=== PATIENT | female | born 1975 | race Caucasian/White ===

== ENCOUNTER → 2016-07-17 | Outpatient (CLI) | payer OTHER | LOC: M LAB 16:07 | PROVIDERS: ATTEND Family Medicine | DX: Z13.0 Encounter for screening for diseases of the blood and blood-forming organs and certain disorders involving the immune mechanism (principal) ==

== ENCOUNTER → 2017-03-18 | Outpatient (CLI) | payer OTHER ==
--- NOTE | 2017-03-18 17:14 | REPMRS ---
Patient History The patient states she had a clinical breast exam in 02/2017. Family history of breast cancer in paternal aunt at age 50. Took hormonal contraceptives for 6 years. Digital Woman Screen Mammo: March 18, 2017 - Exam #: [id number] Bilateral CC and MLO view(s) were taken. Technologist: Jocelin Holder, Technologist FINDINGS: There are scattered fibroglandular densities. There is no evidence of dominant mass, architectural distortion, or clustered microcalcification typical of malignancy. ASSESSMENT: BI-RADS/ACR category 1 mammogram. Negative. Recommendation Routine screening mammogram of both breasts in 1 year (for women over age 40). This mammogram was interpreted with the aid of an FDA-approved computer-aided dectection system. Electronically Signed By: Jonathon Mcdonald MD 03/18/17 [id number]
== END ==
LOC: M WHC 15:44
PROVIDERS: ATTEND Obstetrics & Gynecology
DX: Z12.31 Encounter for screening mammogram for malignant neoplasm of breast (principal); Z80.3 Family history of malignant neoplasm of breast; Z92.0 Personal history of contraception

== ENCOUNTER → 2017-03-19 | Outpatient (REF) | payer OTHER | LOC: M LAB REF 18:57 | PROVIDERS: ATTEND Physician Assistant | DX: M54.5 Low back pain (principal) ==

== ENCOUNTER → 2017-08-04 | Outpatient (REF) | payer OTHER ==
[2017-08-04 12:41] LABS: HEMATOCRIT 40.1 % (36.0-47.0); HEMOGLOBIN 13.1 g/dl (12.0-15.5); MEAN CORPUSCULAR HEMOGLOBIN 32.1 pg (27.0-33.0); MEAN CORPUSCULAR HGB CONC 32.7 g/dl (32.0-36.5); MEAN CORPUSCULAR VOLUME 98.3 fl (80.0-96.0); PLATELET COUNT, AUTOMATED 272 10^3/uL (150-450); RED BLOOD COUNT 4.08 10^6/uL (4.00-5.40); RED CELL DISTRIBUTION WIDTH 12.5 % (11.5-14.5); WHITE BLOOD COUNT 5.5 10^3/uL (4.0-10.0)
[2017-08-04 13:17] LABS: TOTAL 25(OH) VITAMIN D 43.3 NG/ML (30.0-100.0)
[2017-08-04 13:23] LABS: ESTIMATED AVERAGE GLUCOSE 80 MG/DL (60-110); HEMOGLOBIN A1c 4.4 %
[2017-08-04 13:30] LABS: ALBUMIN 3.9 GM/DL (3.2-5.2); ALBUMIN/GLOBULIN RATIO 1.15 (1.00-1.93); ALKALINE PHOSPHATASE 60 U/L (45-117); ALT/SGPT 18 U/L (12-78); ANION GAP 5 MEQ/L (8-16); AST/SGOT 13 U/L (7-37); BILIRUBIN,TOTAL 0.3 MG/DL (0.2-1.0); BLOOD UREA NITROGEN 16 MG/DL (7-18); CALCIUM LEVEL 9.1 MG/DL (8.5-10.1); CARBON DIOXIDE LEVEL 28 MEQ/L (21-32); CHLORIDE LEVEL 109 MEQ/L (98-107); CHOLESTEROL LEVEL 201 MG/DL (<200); CHOLESTEROL RISK RATIO 2.512 (<5); CREATININE FOR GFR 0.68 MG/DL (0.55-1.30); GLOMERULAR FILTRATION RATE > 60.0 (>58); GLUCOSE, FASTING 97 MG/DL (70-100); HDL CHOLESTEROL 80 MG/DL (>40); LDL CHOLESTEROL 99.8 MG/DL (<100); NON-HDL-C 121 MG/DL; POTASSIUM SERUM 4.3 MEQ/L (3.5-5.1); SODIUM LEVEL 142 MEQ/L (136-145); TOTAL PROTEIN 7.3 GM/DL (6.4-8.2); TRIGLYCERIDES LEVEL 106 MG/DL (<150)
== END ==
LOC: M LABDRWAD 12:16
DX: D64.9 Anemia, unspecified (principal); E03.9 Hypothyroidism, unspecified; R53.83 Other fatigue

== ENCOUNTER → 2017-10-16 | Outpatient (CLI) | payer OTHER | LOC: M ADAMS 17:54 | DX: M79.641 Pain in right hand (principal) | CPT/HCPCS: 73130 ==

== ENCOUNTER 2018-02-13 08:29 | Emergency (ER) | payer OTHER ==
[2018-02-13] MEDS: IBUPROFEN 800 MG TAB PO (08:54)
== END 2018-02-13 09:52 | disposition home or self-care (01) ==
LOC: M ED 08:29
DX: S20.212A Contusion of left front wall of thorax, initial encounter (principal); W50.1XXA Accidental kick by another person, initial encounter; Y92.098 Other place in other non-institutional residence as the place of occurrence of the external cause; Y93.75 Activity, martial arts; Z88.8 Allergy status to other drugs, medicaments and biological substances
CPT/HCPCS: 71101

== ENCOUNTER → 2018-07-14 | Outpatient (CLI) | payer OTHER ==
[~2018-07-14] MED LIST: NORCOTAB PO
--- NOTE | 2018-07-14 17:24 | REP ---
Clinical: Left hand pain Technique: AP, lateral, bilateral oblique views left hand . Findings: The osseous structures and joint spaces are intact and normal. There is no evidence for acute fracture or dislocation. Surrounding soft tissues are unremarkable. No subcutaneous emphysema or radiodense foreign body. Impression: No acute fracture or dislocation. Electronically Signed by Joe Meyer MD 07/14/2018 05:15 P
== END ==
LOC: M ADAMS 16:23
PROVIDERS: ATTEND Family Medicine
DX: M79.642 Pain in left hand (principal)

== ENCOUNTER → 2018-08-31 | Outpatient (CLI) | payer OTHER ==
[~2018-08-31] MED LIST changes: +HYDR-3715 PO; -NORCOTAB PO
--- NOTE | 2018-09-01 03:26 | REP ---
Clinical: Pain . Technique: AP, lateral, bilateral oblique views right ankle . Findings: No acute fracture or dislocation. Skeletal structures and joint spaces are intact and normal. Ankle mortise appears stable. No subcutaneous emphysema or radiodense foreign body. Impression: Normal right ankle radiograph series. Electronically Signed by Joe Meyer MD 09/01/2018 03:18 A
== END ==
LOC: M ADAMS 17:15
PROVIDERS: ATTEND Physician Assistant
DX: M25.571 Pain in right ankle and joints of right foot (principal)

== ENCOUNTER 2019-02-08 10:08 | Inpatient (IN) | payer OTHER ==
[2019-02-08] MEDS ORDERED: METH36TA5 PO (10:17)
[2019-02-08] MEDS ORDERED: ZOLP10TA2 PO (10:17)
[2019-02-08] MEDS ORDERED: IBUP-1022 PO (10:17)
[2019-02-08] MEDS ORDERED: ACETAMINOPHEN TAB 650MG DOSE (2X325MG) PO ONE (10:45)
[2019-02-08 11:05] LABS: BASO % 0.4 % (0.0-1.0); EOS % 0.1 % (0.0-3.0); HEMATOCRIT 40.1 % (36.0-47.0); HEMOGLOBIN 13.3 g/dl (12.0-15.5); LYMPH # 0.9 10^3/uL (1.5-5.0); LYMPH % 12.7 % (24.0-44.0); MEAN CORPUSCULAR HEMOGLOBIN 33.2 pg (27.0-33.0); MEAN CORPUSCULAR HGB CONC 33.2 g/dl (32.0-36.5); MONO # 0.6 10^3/uL (0.0-0.8); MONO % 8.3 % (0.0-5.0); NEUTROPHILS # 5.7 10^3/uL (1.5-8.5); NEUTROPHILS % 78.1 % (36.0-66.0); PLATELET COUNT, AUTOMATED 209 10^3/uL (150-450); RED BLOOD COUNT 4.01 10^6/uL (4.00-5.40); WHITE BLOOD COUNT 7.3 10^3/uL (4.0-10.0)
[2019-02-08] MEDS ORDERED: cefTRIAXone SOD 2 GM in D5W MINI-BAG PLUS 50 ML IV ONE (11:30)
[2019-02-08] MEDS ORDERED: ONDANSETRON 4MG/2ML VIAL (J2405) IV ONE ×2 (11:30→14:30)
[2019-02-08 11:34] LABS: ALBUMIN 3.5 GM/DL (3.2-5.2); ALT/SGPT 31 U/L (12-78); BILIRUBIN,TOTAL 0.3 MG/DL (0.2-1.0); BLOOD UREA NITROGEN 8 MG/DL (7-18); CALCIUM LEVEL 8.9 MG/DL (8.5-10.1); CARBON DIOXIDE LEVEL 27 MEQ/L (21-32); CHLORIDE LEVEL 105 MEQ/L (98-107); GLOMERULAR FILTRATION RATE > 60.0 (>58); GLUCOSE, FASTING 91 MG/DL (70-100); POTASSIUM SERUM 3.9 MEQ/L (3.5-5.1); SODIUM LEVEL 138 MEQ/L (136-145); TOTAL PROTEIN 6.8 GM/DL (6.4-8.2)
[2019-02-08] MEDS: MORPHINE 4 MG/ML 1ML VIAL/SYRINGE (J2270) IV PRN ×3 (11:42→20:35)
--- NOTE | 2019-02-08 11:51 | REP ---
CT brain: 02/08/2019. Indication: Headache. Fever. Comparison: 06/18/2006. Findings: There is no acute intracranial hemorrhage, acute cortical infarction, mass effect, hydrocephalus or significant fluid within the visualized paranasal sinuses/mastoid air cells. Impression: No acute intracranial process. Electronically Signed by Sanchez Pretty DO 02/08/2019 11:42 A
[2019-02-08] MEDS ORDERED: MORPHINE 4 MG/ML 1ML VIAL/SYRINGE (J2270) IV ONE (13:30)
[2019-02-08] MEDS ORDERED: NS 1,000 ML IV ONE (14:00)
[2019-02-08 14:18] LABS: APPEARANCE, CSF CLEAR (CLEAR); COLOR, CSF COLORLESS (COLORLESS); CSF TUBE# CELL CNT TUBE 1
[2019-02-08 14:20] LABS: APPEARANCE, CSF CLEAR (CLEAR); COLOR, CSF COLORLESS (COLORLESS); CSF TUBE# CELL CNT TUBE 4
[2019-02-08 14:30] LABS: CSF TUBE# GLU TUBE 2; CSF TUBE# TP TUBE 2; GLUCOSE CSF 56 MG/DL (40-75); TOTAL PROTEIN,CSF 48 MG/DL (15-45)
[2019-02-08] MEDS ORDERED: MORPHINE 4 MG/ML 1ML VIAL/SYRINGE (J2270) IV PRN ×2 (14:30→16:00)
[2019-02-08] MEDS ORDERED: BIMA01SOL OU (15:06)
[2019-02-08] MEDS ORDERED: SIMB1SUS OU (15:06)
[2019-02-08] MEDS ORDERED: CHOL100029 PO (15:06)
[2019-02-08] MEDS ORDERED: IBUP200C28 PO (15:06)
[2019-02-08] MEDS ORDERED: B-12100010 PO (15:06)
--- NOTE | 2019-02-08 16:05 | IPNPDOC ---
Text Note Date of Service The patient was seen on 02/08/19. NOTE Chief complaints Headache for the last 3 days HISTORY OF PRESENT ILLNESS: A 43-year-old female with no significant past medical history, comes to the hospital because of 3 day history of debilitating headache. The patient states that she has had some neck stiffness initially with some fever and chills. She denies any trauma to the head. And states that she took some npdy-snp-yqytchq medication, but it did not relieve the pain. The patient went out to some acute care center visit. She was prescribed some medication and asked to go to the ER. The patient states that her neck stiffness has gone away but she cannot move her head because she feels a lot of pain in the middle of her head. She denies any photophobia. Denies any increased sleepiness. Denies any sick contacts. The patient describes this pain as dull, severe pain, which is consistent there. The patient states that whenever she is trying to move her head. It really hurts and that is the reason she is trying to be very still. The patient denies any cough, any diarrhea. The patient does state that over the last few days she has been developing this maculopapular red rash over the upper trunk as well as the back. Denies any new drugs which she has taken. Denies any recreational drug use. Denies any IV drug abuse. Denies any smoking or alcohol abuse. Review system: 10 point review systems negative other than those described in HPI. PAST MEDICAL HISTORY: Discussed in detail. No relevant history PAST SURGICAL HISTORY: Not significant ALLERGIES: NO KNOWN DRUG ALLERGIES. FAMILY HISTORY: Negative for diabetes, otherwise noncontributory. SOCIAL HISTORY: The patient denies use of tobacco, alcohol or illicit drugs. HOME MEDICATIONS: Please see below. PHYSICAL EXAMINATION: VITAL SIGNS: Please see below GENERAL APPEARANCE: Resting him a slightly restless and having some chills in front of me. HEENT: Normocephalic, extraocular muscles are intact. Pupils normal reactive to light. Mild nuchal rigidity. As she complains of pain while I'm trying to move her head. CARDIOVASCULAR: S1,S2, pulse present LUNGS: Equal air entry b/l, no wheezes or crackle ABDOMEN: Soft, BS present, no tenderness, no guarding GENITOURINARY: No Billy EXTREMITIES: B/L no edema, capillary refill present , left wrist vascular surgery her fistula but not patent SKIN: Papular rash on the upper trunk. NEUROLOGICAL: Cranial nerves grossly intact, strength equal bilateral upper and lower extremities. No fecal or urinary incontinence. PSYCHIATRIC: Normal mood and affect for current situation Assessment and plan: 1. Possible viral meningitis. The patient's complaints are significant for meningitis. With WBC at elevation with polymorphs and slight protein elevation. It most likely looks like viral meningitis. Though the viral PCR is negative. The patient does have some polymorphs and for that reason I spoke with infectious disease and they agree covering her for the bacterial meningitis as well. The patient will be kept on Rocephin 2 g. The cultures have been ordered. We'll follow the official infectious disease consultation. 2. Maculopapular rash. Could be related to white etiology versus some drug rash. She took over-the counter medications. We will continue to monitor. Infectious disease already on board. Continue home medication not contraindicated Disposition unknown at this time Pain control with morphine one every 4 when necessary Fall precautions Dvt prophylaxis with SCDs VS,Fishbone, I+O VS, Fishbone, I+O Laboratory Tests 02/08/19 10:54 Vital Signs Date Time Temp Pulse Resp B/P (MAP) Pulse Ox O2 Delivery O2 Flow Rate FiO2 02/08/19 14:36 18 02/08/19 14:26 100 Room Air 02/08/19 12:59 100.6 02/08/19 12:30 92 132/71 (91) REY DUBOIS MD Feb 08, 2019 16:05
[2019-02-08] MEDS ORDERED: KETOROLAC 30 MG/ML VIAL (J1885) IV ONE (16:15)
[2019-02-08] MEDS: NS 1,000 ML IV SCH (16:57)
[2019-02-08] MEDS: ACETAMINOPHEN TAB 650MG DOSE (2X325MG) PO PRN (18:31)
[2019-02-08 18:57] VITALS: BP 125/67
[2019-02-08] MEDS: KETOROLAC 30 MG/ML VIAL (J1885) IV SCH (22:24)
[2019-02-08 22:30] VITALS: BP 117/58
[2019-02-09] MEDS: NS 1,000 ML IV SCH ×2 (01:25→20:40)
[2019-02-09 03:15] VITALS: BP 130/63
[2019-02-09] MEDS: MORPHINE 4 MG/ML 1ML VIAL/SYRINGE (J2270) IV PRN ×3 (03:26→20:33)
[2019-02-09] MEDS: ACETAMINOPHEN TAB 650MG DOSE (2X325MG) PO PRN ×3 (03:41→19:22)
[2019-02-09] MEDS: KETOROLAC 30 MG/ML VIAL (J1885) IV SCH ×4 (05:15→22:09)
[2019-02-09 07:20] LABS: ALBUMIN 2.8 GM/DL (3.2-5.2); ALT/SGPT 23 U/L (12-78); BILIRUBIN,TOTAL 0.4 MG/DL (0.2-1.0); BLOOD UREA NITROGEN 6 MG/DL (7-18); CALCIUM LEVEL 8.1 MG/DL (8.5-10.1); CARBON DIOXIDE LEVEL 27 MEQ/L (21-32); CHLORIDE LEVEL 107 MEQ/L (98-107); CREATININE FOR GFR 0.64 MG/DL (0.55-1.30); GLOMERULAR FILTRATION RATE > 60.0 (>58); GLUCOSE, FASTING 106 MG/DL (70-100); POTASSIUM SERUM 3.3 MEQ/L (3.5-5.1); SODIUM LEVEL 140 MEQ/L (136-145)
--- NOTE | 2019-02-09 07:47 | CR ---
DATE OF CONSULTATION: 02/08/2019 Asked to consult by Dr. Greer for aseptic meningitis. HISTORY OF PRESENT ILLNESS: Mrs. Valle is a 43-year-old female with no significant past medical history except for a remote history of migraine. The patient presented to the hospital with a 3-day history of debilitating headache and neck pain associated with neck stiffness. The patient had fever and chills. The headache started about 3 days prior to admission, when she went to [place] the farm with her two children, who are 11-year-old twins. She took some jzsa-ddf-[id number] anti-inflammatories with some relief. The patient denied any nausea, vomiting, diarrhea, abdominal pain. No cough or shortness of breath. No upper respiratory symptoms. She denies any sick contacts. The pain in her head is still severe, constant, worse with any movement of her head. No mental status changes. PAST MEDICAL HISTORY: Remote history of migraine. Her last migraine was 11 years ago when she had her twins. PAST SURGICAL HISTORY: None. ALLERGIES: COMPAZINE and REGLAN, which cause dystonia. FAMILY HISTORY: Negative. SOCIAL HISTORY: She is . She lives with her and her two 11-year-old children. She teaches at [employer]. REVIEW OF SYSTEMS: She denied nausea, vomiting, or diarrhea. No abdominal pain. She has severe headache, neck stiffness. She developed a rash today, which his nonpruritic. PHYSICAL EXAMINATION: She is a sick-looking female in no acute distress. HEART: Normal S1, S2. No murmurs, rubs, or gallops. LUNGS: Clear. No wheezes, rales, or rhonchi. ABDOMEN: Soft, nontender. No hepatosplenomegaly. EXTREMITIES: No clubbing, cyanosis, or edema. SKIN: Diffuse maculopapular rash on upper trunk/spine. Lesions on lower extremities. Some of the lesions on the upper trunk look vesicular. NEUROLOGIC: Cranial nerves intact. Upper and lower extremity strength normal. NECK: Has fair range of motion, although with pain. She has mild terminal stiffness, but she could flex 45 degrees. LABORATORY DATA: White count 7.3, hemoglobin 13.3, hematocrit 40.1, platelets 209, 78% neutrophils, 12% lymphocytes, 8% monocytes. Sodium 138, potassium 3.9, chloride 105, bicarbonate 27, BUN 8, creatinine 0.7, glucose 91, calcium 8.9. AST 24, ALT 31, alkaline phosphatase 65. Lyme serology is pending. CSF: 33 white cells, RBC less than 2, total protein 48, glucose 56, 78% lymph 21% PMN. CSF multiplex PCR was negative for herpes, Streptococcus pneumoniae, Streptococcus agalactiae, Listeria, Neisseria, Haemophilus, Escherichia (E) coli, varicella, enterovirus, cytomegalovirus, HSV 1 and 2. Respiratory panel was negative. Blood cultures pending. CSF culture is pending. Head CT: No acute intracranial process. IMPRESSION: This is a 43-year-old previously healthy female who presents with acute onset of headache, fever, chills associated with a maculopapular rash and aseptic meningitis. This is most likely enterovirus that is not picked up on the multiplex PCR. Less likely Lyme meningitis, although patient did not present that acutely ill, and the rash is not typical for Lyme disease. HIV aseptic meningitis also in the differential, although she does not have risk factors that should be considered. PLAN: Add HIV serology, Lyme disease serology. Rocephin 2 grams intravenous (IV) every 24 hours until Lyme serology is back. Most likely aseptic meningitis, and treatment would be conservative with Toradol, morphine, fluid hydration. MTDD
[2019-02-09 08:00] VITALS: BP 131/79
--- NOTE | 2019-02-09 08:52 | HPEPDOC ---
[facility] Medical History & Physical Date of Admission Feb 08, 2019 Date of Service: Feb 08, 2019 History and Physical Chief complaints Headache for the last 3 days HISTORY OF PRESENT ILLNESS: A 43-year-old female with no significant past medical history, comes to the hospital because of 3 day history of debilitating headache. The patient states that she has had some neck stiffness initially with some fever and chills. She denies any trauma to the head. And states that she took some zqjr-jqt-bfdamqn medication, but it did not relieve the pain. The patient went out to some acute care center visit. She was prescribed some medication and asked to go to the ER. The patient states that her neck stiffness has gone away but she cannot move her head because she feels a lot of pain in the middle of her head. She denies any photophobia. Denies any increased sleepiness. Denies any sick contacts. The patient describes this pain as dull, severe pain, which is consistent there. The patient states that whenever she is trying to move her head. It really hurts and that is the reason she is trying to be very still. The patient denies any cough, any diarrhea. The patient does state that over the last few days she has been developing this maculopapular red rash over the upper trunk as well as the back. Denies any new drugs which she has taken. Denies any recreational drug use. Denies any IV drug abuse. Denies any smoking or alcohol abuse. Review system: 10 point review systems negative other than those described in HPI. PAST MEDICAL HISTORY: Discussed in detail. No relevant history PAST SURGICAL HISTORY: Not significant ALLERGIES: NO KNOWN DRUG ALLERGIES. FAMILY HISTORY: Negative for diabetes, otherwise noncontributory. SOCIAL HISTORY: The patient denies use of tobacco, alcohol or illicit drugs. HOME MEDICATIONS: Please see below. PHYSICAL EXAMINATION: VITAL SIGNS: Please see below GENERAL APPEARANCE: Resting him a slightly restless and having some chills in front of me. HEENT: Normocephalic, extraocular muscles are intact. Pupils normal reactive to light. Mild nuchal rigidity. As she complains of pain while I'm trying to move her head. CARDIOVASCULAR: S1,S2, pulse present LUNGS: Equal air entry b/l, no wheezes or crackle ABDOMEN: Soft, BS present, no tenderness, no guarding GENITOURINARY: No Billy EXTREMITIES: B/L no edema, capillary refill present , left wrist vascular surgery her fistula but not patent SKIN: Papular rash on the upper trunk. NEUROLOGICAL: Cranial nerves grossly intact, strength equal bilateral upper and lower extremities. No fecal or urinary incontinence. PSYCHIATRIC: Normal mood and affect for current situation Assessment and plan: 1. Possible viral meningitis. The patient's complaints are significant for meningitis. With WBC at elevation with polymorphs and slight protein elevation. It most likely looks like viral meningitis. Though the viral PCR is negative. The patient does have some polymorphs and for that reason I spoke with infectious disease and they agree covering her for the bacterial meningitis as well. The patient will be kept on Rocephin 2 g. The cultures have been ordered. We'll follow the official infectious disease consultation. 2. Maculopapular rash. Could be related to white etiology versus some drug rash. She took over-the counter medications. We will continue to monitor. Infectious disease already on board. Continue home medication not contraindicated Disposition unknown at this time Pain control with morphine one every 4 when necessary Fall precautions Dvt prophylaxis with SCDs Vital Signs Vital Signs Date Time Temp Pulse Resp B/P (MAP) Pulse Ox O2 Delivery O2 Flow Rate FiO2 02/09/19 05:00 98.8 02/09/19 03:36 18 02/09/19 03:15 90 130/63 (85) 98 Room Air Laboratory Data Labs 24H Laboratory Tests 2 02/08/19 10:54: Immature Granulocyte % (Auto) 0.4, Neutrophils (%) (Auto) 78.1H, Lymphocytes (%) (Auto) 12.7L, Monocytes (%) (Auto) 8.3H, Eosinophils (%) (Auto) 0.1, Basophils (%) (Auto) 0.4, Neutrophils # (Auto) 5.7, Lymphocytes # (Auto) 0.9L, Monocytes # (Auto) 0.6, Eosinophils # (Auto) 0.0, Basophils # (Auto) 0.0, Nucleated Red Blood Cells % (auto) 0.0, Anion Gap 6L, Glomerular Filtration Rate > 60.0, Calcium Level 8.9, Total Bilirubin 0.3, Aspartate Amino Transf (AST/SGOT) 24, Alanine Aminotransferase (ALT/SGPT) 31, Alkaline Phosphatase 65, Total Protein 6.8, Albumin 3.5, Albumin/Globulin Ratio 1.06 02/08/19 13:57: CSF Appearance CLEAR, CSF Color COLORLESS, CSF WBC (Auto) 35H, CSF RBC (Auto) < 2, CSF Glucose (Tube 1) TUBE 2, CSF Total Protein (Tube 1) TUBE 2, CSF Cell Count Tube # TUBE 4, CSF Mononuclear Cells % (Auto) 85.7H, CSF Polynuclear WBCs (%) 14.3H, CSF Glucose 56, CSF Total Protein 48H 02/08/19 18:16: HIV Antigen/Antibody Combo Qual NEGATIVE 02/08/19 20:42: Bedside Glucose (Misc Panel) 106H 02/09/19 06:28: Anion Gap 6L, Glomerular Filtration Rate > 60.0, Calcium Level 8.1L, Total Bilirubin 0.4, Aspartate Amino Transf (AST/SGOT) 11, Alanine Aminotransferase (ALT/SGPT) 23, Alkaline Phosphatase 47, Total Protein 6.0L, Albumin 2.8L, Albumin/Globulin Ratio 0.88L CBC/BMP Laboratory Tests 02/08/19 10:54 02/09/19 06:28 Microbiology Microbiology 02/08/19 Blood Culture, Received Pending 02/08/19 Blood Culture, Received Pending 02/08/19 - Final, Complete 02/08/19 Gram Stain - Final, Resulted 02/08/19 CSF Culture, Resulted Pending 02/08/19 Respiratory Virus Panel (PCR) (YANICK) - Final, Complete 02/08/19 Blood Culture, Received Pending Home Medications Scheduled Bimatoprost (Lumigan) 0.01% 2.5ML Drops, 1 DROP OU QHS Brinzolamide/Brimonidine Tart (Simbrinza 1%-0.2% Eye Drops) 8 Ml Drops.susp, 1 DROP OU BID Cyanocobalamin (Vitamin B-12) (Vitamin B-12) 1,000 Mcg Capsule, 1,000 MCG PO DAILY Methylphenidate HCl (Methylphenidate ER) 36 Mg Tab.er.24, 36 MG PO DAILY Vitamin D (Vitamin D3) 1,000 Unit Tablet, 1,000 UNITS PO DAILY Zolpidem Tartrate (Zolpidem Tartrate) 10 Mg Tablet, 10 MG PO QHS Scheduled PRN Ibuprofen (Ibuprofen) 200 Mg Capsule, 600 MG PO QID PRN for PAIN Allergies Coded Allergies: metoclopramide (Verified Adverse Reaction, Mild, dystonia , 02/08/19) prochlorperazine (Verified Adverse Reaction, Mild, dystonia , 02/08/19) A-FIB/CHADSVASC A-FIB History Current/History of A-Fib/PAF?: No Current PO Anticoag Therapy: No REY DUBOIS MD Feb 09, 2019 08:52
[2019-02-09] MEDS: VITAMIN D 1,000 INTERNATIONAL UNITS TABLET PO SCH (09:41)
[2019-02-09] MEDS: CYANOCOBALAMIN 500 MCG TAB PO SCH (09:42)
[2019-02-09] MEDS: HEPARIN SOD (PORCINE) 5000 UNITS/ML VIAL SQ SCH ×3 (09:56→21:45)
--- NOTE | 2019-02-09 10:57 | IPNPDOC ---
Text Note Date of Service The patient was seen on 02/09/19. NOTE Patient was seen and examined this morning. States that her headache is slightly better. No overnight events PHYSICAL EXAMINATION: VITAL SIGNS: Please see below GENERAL APPEARANCE: Resting him a slightly restless and having some chills in front of me. HEENT: Normocephalic, extraocular muscles are intact. Pupils normal reactive to light. Mild nuchal rigidity. As she complains of pain while I'm trying to move her head. CARDIOVASCULAR: S1,S2, pulse present LUNGS: Equal air entry b/l, no wheezes or crackle ABDOMEN: Soft, BS present, no tenderness, no guarding GENITOURINARY: No Billy EXTREMITIES: B/L no edema, capillary refill present , left wrist vascular surgery her fistula but not patent SKIN: Papular rash on the upper trunk. NEUROLOGICAL: Cranial nerves grossly intact, strength equal bilateral upper and lower extremities. No fecal or urinary incontinence. PSYCHIATRIC: Normal mood and affect for current situation Assessment and plan: 1. Possible viral meningitis. The patient's complaints are significant for meningitis. With WBC at elevation with polymorphs and slight protein elevation in CSF. It most likely looks like viral meningitis. Though the viral PCR is negative. The patient does have some polymorphs and for that reason I spoke with infectious disease and they agree covering her for the bacterial meningitis as well. The patient will be kept on Rocephin 2 g. The cultures have been ordered. We'll follow the official infectious disease consultation. Also, HIV has been negative and Lyme titers have been ordered. 2. Maculopapular rash. Could be related to white etiology versus some drug rash. She took over-the counter medications. We will continue to monitor. Infectious disease already on board. Continue home medication not contraindicated Disposition unknown at this time Pain control with morphine one every 4 when necessary Fall precautions Dvt prophylaxis with SCDs VS,Fishbone, I+O VS, Fishbone, I+O Laboratory Tests 02/09/19 06:28 Vital Signs Date Time Temp Pulse Resp B/P (MAP) Pulse Ox O2 Delivery O2 Flow Rate FiO2 02/09/19 09:40 18 02/09/19 08:00 97.5 75 131/79 (96) 100 Room Air I&O- Last 24 Hours up to 6 AM 02/09/19 06:00 Intake Total 2880 ml Output Total 550 ml Balance 2330 ml REY DUBOIS MD Feb 09, 2019 10:57
[2019-02-09] MEDS ORDERED: cefTRIAXone SOD 2 GM in D5W MINI-BAG PLUS 50 ML IV ONE (12:00)
[2019-02-09] MEDS ORDERED: HYDROMORPHONE HCL 0.5 MG/ 0.5 ML SYRINGE (J1170 PER 1) IV ONE ×2 (12:45→15:45)
[2019-02-09] MEDS ORDERED: HYDROMORPHONE HCL 0.5 MG/ 0.5 ML SYRINGE (J1170 PER 1) As Ordered ONE (12:48)
[2019-02-09] MEDS: ONDANSETRON 4MG/2ML VIAL (J2405) IV PRN ×2 (13:02→20:09)
[2019-02-09] MEDS ORDERED: MORPHINE 4 MG/ML 1ML VIAL/SYRINGE (J2270) IV ONE (15:00)
[2019-02-09] MEDS ORDERED: PROMETHAZINE INJ 25 MG/ML VIAL (J2550) As Ordered ONE (15:39)
[2019-02-09] MEDS ORDERED: PROMETHAZINE INJ 25 MG/ML VIAL (J2550) IV ONE (15:45)
[2019-02-09 16:00] VITALS: BP 147/82
[2019-02-09 20:00] VITALS: BP 147/80
[2019-02-09 21:56] LABS: BASO % 0.4 % (0.0-1.0); EOS % 0.6 % (0.0-3.0); HEMATOCRIT 35.4 % (36.0-47.0); HEMOGLOBIN 11.8 g/dl (12.0-15.5); LYMPH # 0.9 10^3/uL (1.5-5.0); MEAN CORPUSCULAR HEMOGLOBIN 33.2 pg (27.0-33.0); MEAN CORPUSCULAR HGB CONC 33.3 g/dl (32.0-36.5); MEAN CORPUSCULAR VOLUME 99.7 fl (80.0-96.0); MONO # 0.8 10^3/uL (0.0-0.8); MONO % 12.2 % (0.0-5.0); NEUTROPHILS # 4.9 10^3/uL (1.5-8.5); NEUTROPHILS % 73.5 % (36.0-66.0); PLATELET COUNT, AUTOMATED 198 10^3/uL (150-450); RED BLOOD COUNT 3.55 10^6/uL (4.00-5.40); WHITE BLOOD COUNT 6.7 10^3/uL (4.0-10.0)
[2019-02-09 22:23] LABS: ERYTHROCYTE SEDIMENTATION RATE 33 mm/hr (0-20)
[2019-02-09 22:30] VITALS: BP 141/72
[2019-02-10] MEDS ORDERED: POTASSIUM CHLORIDE 10 MEQ SR TABLET PO ONE (01:00)
[2019-02-10] MEDS: MORPHINE 4 MG/ML 1ML VIAL/SYRINGE (J2270) IV PRN ×3 (03:00→18:24)
[2019-02-10] MEDS: HEPARIN SOD (PORCINE) 5000 UNITS/ML VIAL SQ SCH ×3 (05:18→22:31)
[2019-02-10] MEDS: NS 1,000 ML IV SCH ×3 (05:18→20:31)
[2019-02-10] MEDS: ACETAMINOPHEN TAB 650MG DOSE (2X325MG) PO PRN (05:23)
[2019-02-10 06:00] VITALS: BP 114/72
[2019-02-10] MEDS ORDERED: KETOROLAC 30 MG/ML VIAL (J1885) IV ONE ×2 (06:00→13:00)
[2019-02-10 06:42] LABS: ALBUMIN 2.9 GM/DL (3.2-5.2); ALT/SGPT 23 U/L (12-78); BILIRUBIN,TOTAL 0.3 MG/DL (0.2-1.0); BLOOD UREA NITROGEN 5 MG/DL (7-18); C REACTIVE PROTEIN QUANTITATIV 9.67 MG/DL (0.00-0.30); CALCIUM LEVEL 8.6 MG/DL (8.5-10.1); CARBON DIOXIDE LEVEL 27 MEQ/L (21-32); CHLORIDE LEVEL 107 MEQ/L (98-107); CREATININE FOR GFR 0.53 MG/DL (0.55-1.30); GLOMERULAR FILTRATION RATE > 60.0 (>58); GLUCOSE, FASTING 92 MG/DL (70-100); POTASSIUM SERUM 3.5 MEQ/L (3.5-5.1); SODIUM LEVEL 140 MEQ/L (136-145); TOTAL PROTEIN 6.5 GM/DL (6.4-8.2)
[2019-02-10] MEDS: VITAMIN D 1,000 INTERNATIONAL UNITS TABLET PO SCH (09:00)
[2019-02-10] MEDS: CYANOCOBALAMIN 500 MCG TAB PO SCH (09:00)
[2019-02-10] MEDS: ONDANSETRON 4MG/2ML VIAL (J2405) IV PRN (12:01)
--- NOTE | 2019-02-10 12:19 | IPNPDOC ---
Text Note Date of Service The patient was seen on 02/10/19. NOTE Patient was seen and examined this morning. States that her headache is slightly better. No overnight events PHYSICAL EXAMINATION: VITAL SIGNS: Please see below GENERAL APPEARANCE: Resting him a slightly restless HEENT: Normocephalic, extraocular muscles are intact. Pupils normal reactive to light. No nuchal rigidity. As she complains of pain while I'm trying to move her head. CARDIOVASCULAR: S1,S2, pulse present LUNGS: Equal air entry b/l, no wheezes or crackle ABDOMEN: Soft, BS present, no tenderness, no guarding GENITOURINARY: No Billy EXTREMITIES: B/L no edema, capillary refill present SKIN: Papular rash on the upper trunk. NEUROLOGICAL: Cranial nerves grossly intact, strength equal bilateral upper and lower extremities. No fecal or urinary incontinence. PSYCHIATRIC: Normal mood and affect for current situation Assessment and plan: 1. Possible viral meningitis. The patient's complaints are significant for meningitis. With WBC at elevation with polymorphs and slight protein elevation in CSF. It most likely looks like viral meningitis. Though the viral PCR is negative. The patient does have some polymorphs and for that reason I spoke with infectious disease and they agree covering her for the bacterial meningitis as well. The patient will be kept on Rocephin 2 g day 3 today. The cultures have been ordered. We'll follow the official infectious disease consultation. Also, HIV has been negative and Lyme titers have been ordered. As she was having severe neck pain and some paraspinal tenderness in the lumbar region. MRI of the head, cervical spine, lumbar spine and thoracic spine has been ordered. 2. Maculopapular rash. Could be related to white etiology versus some drug rash. She took over-the counter medications. We will continue to monitor. Infectious disease already on board. Continue home medication not contraindicated Disposition unknown at this time Pain control with morphine one every 4 when necessary Fall precautions Dvt prophylaxis with SCDs VS,Fishbone, I+O VS, Fishbone, I+O Laboratory Tests 02/09/19 21:45 02/10/19 05:54 Vital Signs Date Time Temp Pulse Resp B/P (MAP) Pulse Ox O2 Delivery O2 Flow Rate FiO2 02/10/19 12:08 18 Room Air 02/10/19 06:00 99.9 91 114/72 (86) 98 I&O- Last 24 Hours up to 6 AM 02/10/19 06:00 Intake Total 3000 ml Output Total 2350 ml Balance 650 ml REY DUBOIS MD Feb 10, 2019 12:19
[2019-02-10 14:00] VITALS: BP 138/83
[2019-02-10 14:07] LABS: Lyme Disease IgG/IgM Antibodie <0.91 ISR (0.00-0.90); Lyme Disease IgM Ab Quantitati <0.80 index (0.00-0.79)
--- NOTE | 2019-02-10 15:20 | REP ---
MRI brain: 02/10/2019. New indication: New headache. Meningitis. Comparison: CT brain dated 02/08/2019. Technique: Multiplanar short and long TR sequences of the brain were obtained without IV gadolinium enhancement. Findings: There are no areas of restricted diffusion. There is no intracranial mass effect or hydrocephalous. No abnormal signal is present within the brainstem or brain parenchyma. The large intracranial flow voids are present. Right mastoid effusion is noted. There is no evidence of intracranial hemorrhage. Impression: No acute intracranial process. Unremarkable brain. Electronically Signed by Sanchez Pretty DO 02/10/2019 03:12 P
[2019-02-10] MEDS ORDERED: PROMETHAZINE INJ 25 MG/ML VIAL (J2550) IV ONE (18:45)
[2019-02-10 20:00] VITALS: BP 117/85
[2019-02-11] MEDS: MORPHINE 4 MG/ML 1ML VIAL/SYRINGE (J2270) IV PRN ×2 (00:40→13:05)
[2019-02-11] MEDS: ACETAMINOPHEN TAB 650MG DOSE (2X325MG) PO PRN ×2 (01:05→20:11)
[2019-02-11 06:00] VITALS: BP 119/65
[2019-02-11] MEDS: HEPARIN SOD (PORCINE) 5000 UNITS/ML VIAL SQ SCH ×3 (06:27→21:17)
[2019-02-11] MEDS: NS 1,000 ML IV SCH (06:27)
[2019-02-11 06:34] LABS: HEMATOCRIT 34.7 % (36.0-47.0); HEMOGLOBIN 11.7 g/dl (12.0-15.5); MEAN CORPUSCULAR HEMOGLOBIN 33.7 pg (27.0-33.0); MEAN CORPUSCULAR HGB CONC 33.7 g/dl (32.0-36.5); PLATELET COUNT, AUTOMATED 216 10^3/uL (150-450); RED BLOOD COUNT 3.47 10^6/uL (4.00-5.40); WHITE BLOOD COUNT 5.9 10^3/uL (4.0-10.0)
[2019-02-11 07:09] LABS: ALBUMIN 2.7 GM/DL (3.2-5.2); ALT/SGPT 17 U/L (12-78); BILIRUBIN,TOTAL 0.5 MG/DL (0.2-1.0); BLOOD UREA NITROGEN 5 MG/DL (7-18); CALCIUM LEVEL 8.1 MG/DL (8.5-10.1); CARBON DIOXIDE LEVEL 26 MEQ/L (21-32); CHLORIDE LEVEL 106 MEQ/L (98-107); CREATININE FOR GFR 0.52 MG/DL (0.55-1.30); GLOMERULAR FILTRATION RATE > 60.0 (>58); GLUCOSE, FASTING 92 MG/DL (70-100); POTASSIUM SERUM 3.6 MEQ/L (3.5-5.1); SODIUM LEVEL 140 MEQ/L (136-145); TOTAL PROTEIN 6.1 GM/DL (6.4-8.2)
[2019-02-11] MEDS: CYANOCOBALAMIN 500 MCG TAB PO SCH (09:42)
[2019-02-11] MEDS: KETOROLAC TROMETHAMINE 10 MG TAB PO PRN (09:43)
[2019-02-11] MEDS: VITAMIN D 1,000 INTERNATIONAL UNITS TABLET PO SCH (09:43)
--- NOTE | 2019-02-11 12:28 | IPNPDOC ---
Text Note Date of Service The patient was seen on 02/11/19. NOTE Patient was seen and examined this morning. States that her headache is slightly better. No overnight events except for mild fever PHYSICAL EXAMINATION: VITAL SIGNS: Please see below GENERAL APPEARANCE: Resting him a slightly restless HEENT: Normocephalic, extraocular muscles are intact. Pupils normal reactive to light. No nuchal rigidity. As she complains of pain while I'm trying to move her head. CARDIOVASCULAR: S1,S2, pulse present LUNGS: Equal air entry b/l, no wheezes or crackle ABDOMEN: Soft, BS present, no tenderness, no guarding GENITOURINARY: No Billy EXTREMITIES: B/L no edema, capillary refill present SKIN: Papular rash on the upper trunk. NEUROLOGICAL: Cranial nerves grossly intact, strength equal bilateral upper and lower extremities. No fecal or urinary incontinence. PSYCHIATRIC: Normal mood and affect for current situation Assessment and plan: 1. Possible viral meningitis. The patient's complaints are significant for meningitis. With WBC at elevation with polymorphs and slight protein elevation in CSF. It most likely looks like viral meningitis. Though the viral PCR is negative. The patient does have some polymorphs and for that reason I spoke with infectious disease and they agree covering her for the bacterial meningitis as well. The patient will be kept on Rocephin 2 g day 4 today. The cultures have been ordered and negative so far. Also, HIV has been negative and Lyme negative. As a As she was having severe neck pain and some paraspinal tenderness in the lumbar region. MRI of the head, cervical spine, lumbar spine and thoracic spine has been ordered. MRI of the head has been normal, but the patient does not want to have other MRIs. There is no paraspinal tenderness seen on examination today 2. Maculopapular rash. Resolving Could be related to white etiology versus some drug rash. She took over-the counter medications. We will continue to monitor. Infectious disease already on board. Continue home medication not contraindicated Disposition unknown at this time Pain control with morphine one every 4 when necessary Fall precautions Dvt prophylaxis with SCDs VS,Fishbone, I+O VS, Fishbone, I+O Laboratory Tests 02/11/19 06:21 Vital Signs Date Time Temp Pulse Resp B/P (MAP) Pulse Ox O2 Delivery O2 Flow Rate FiO2 02/11/19 06:00 98.0 88 18 119/65 (83) 98 02/11/19 00:50 Room Air I&O- Last 24 Hours up to 6 AM 02/11/19 06:00 Intake Total 2250 ml Output Total 1800 ml Balance 450 ml REY DUBOIS MD Feb 11, 2019 12:28
[2019-02-11 14:00] VITALS: BP 118/60
[2019-02-11] MEDS ORDERED: MORPHINE 4 MG/ML 1ML VIAL/SYRINGE (J2270) IV ONE (18:30)
[2019-02-11 22:00] VITALS: BP 131/82
[2019-02-12] MEDS: KETOROLAC TROMETHAMINE 10 MG TAB PO PRN ×2 (02:12→15:23)
[2019-02-12] MEDS: HEPARIN SOD (PORCINE) 5000 UNITS/ML VIAL SQ SCH ×3 (05:17→22:25)
[2019-02-12 06:00] VITALS: BP 117/70
[2019-02-12] MEDS: ACETAMINOPHEN TAB 650MG DOSE (2X325MG) PO PRN ×3 (06:12→22:40)
[2019-02-12 06:47] LABS: ALT/SGPT 18 U/L (12-78); BILIRUBIN,TOTAL 0.3 MG/DL (0.2-1.0); BLOOD UREA NITROGEN 7 MG/DL (7-18); CALCIUM LEVEL 9.2 MG/DL (8.5-10.1); CARBON DIOXIDE LEVEL 28 MEQ/L (21-32); CHLORIDE LEVEL 107 MEQ/L (98-107); CREATININE FOR GFR 0.59 MG/DL (0.55-1.30); GLOMERULAR FILTRATION RATE > 60.0 (>58); GLUCOSE, FASTING 102 MG/DL (70-100); POTASSIUM SERUM 3.4 MEQ/L (3.5-5.1); SODIUM LEVEL 142 MEQ/L (136-145)
[2019-02-12] MEDS: MORPHINE 4 MG/ML 1ML VIAL/SYRINGE (J2270) IV PRN ×2 (07:41→17:39)
[2019-02-12] MEDS: CYANOCOBALAMIN 500 MCG TAB PO SCH (09:02)
[2019-02-12] MEDS: VITAMIN D 1,000 INTERNATIONAL UNITS TABLET PO SCH (09:02)
--- NOTE | 2019-02-12 10:23 | IPNPDOC ---
Text Note Date of Service The patient was seen on 02/12/19. NOTE Patient was seen and examined this morning. States that her headache is slightly better. No overnight events except for mild fever PHYSICAL EXAMINATION: VITAL SIGNS: Please see below GENERAL APPEARANCE: Resting him a slightly restless HEENT: Normocephalic, extraocular muscles are intact. Pupils normal reactive to light. No nuchal rigidity. As she complains of pain while I'm trying to move her head. CARDIOVASCULAR: S1,S2, pulse present LUNGS: Equal air entry b/l, no wheezes or crackle ABDOMEN: Soft, BS present, no tenderness, no guarding GENITOURINARY: No Billy EXTREMITIES: B/L no edema, capillary refill present SKIN: Papular rash on the upper trunk. NEUROLOGICAL: Cranial nerves grossly intact, strength equal bilateral upper and lower extremities. No fecal or urinary incontinence. PSYCHIATRIC: Normal mood and affect for current situation Assessment and plan: 1. Possible viral meningitis. The patient's complaints are significant for meningitis. With WBC at elevation with polymorphs and slight protein elevation in CSF. It most likely looks like viral meningitis. Though the viral PCR is negative. The patient does have some polymorphs The patient will be kept on Rocephin 2 g day 4 today. The cultures have been ordered and negative so far. Also, HIV has been negative and Lyme negative. As the patient spiked a fever again. The patient will get repeat blood culture, urine culture. As she was having severe neck pain and some paraspinal tenderness in the lumbar region. MRI of the head, cervical spine, lumbar spine and thoracic spine has been ordered. MRI of the head has been normal, but the patient does not want to have other MRIs. There is no paraspinal tenderness seen on examination today 2. Maculopapular rash. Resolving Could be related to white etiology versus some drug rash. She took over-the counter medications. We will continue to monitor. Infectious disease already on board. 3. Adult onset still's disease. With headache, rash, and fever that revealed the possibilities as well. Ferritin has been admitted. Continue to follow Continue home medication not contraindicated Disposition unknown at this time Pain control with morphine one every 4 when necessary Fall precautions Dvt prophylaxis with SCDs VS,Fishbone, I+O VS, Fishbone, I+O Laboratory Tests 02/12/19 06:00 Vital Signs Date Time Temp Pulse Resp B/P (MAP) Pulse Ox O2 Delivery O2 Flow Rate FiO2 02/12/19 07:51 17 Room Air 02/12/19 06:00 97.8 77 117/70 (86) 98 I&O- Last 24 Hours up to 6 AM 02/12/19 06:00 Intake Total 1920 ml Output Total 1550 ml Balance 370 ml REY DUBOIS MD Feb 12, 2019 10:23
[2019-02-12] MEDS: DOXYCYCLINE HYCLATE 100 MG in D5W MINI-BAG PLUS 100 ML IV SCH ×2 (12:11→22:25)
[2019-02-12 14:00] VITALS: BP 134/81
--- NOTE | 2019-02-12 16:53 | IPN ---
DATE: 02/12/2019 Wendy seems to be doing much better this afternoon. She got up and showered. Her headache has improved. The rash is subsiding. It involves her upper abdomen, back and upper thighs. She has a good appetite today. Labs: White count is 5.9, hemoglobin 11.7, hematocrit 34.7, platelets 216. Sodium 142, potassium 3.4, chloride 107, bicarbonate 28, BUN 7, creatinine 0.59, glucose 102, calcium 9.2, ferritin 133, AST 6, ALT 18, alkaline phosphatase 63, total protein 7, albumin three. Procalcitonin 0.03. Blood cultures three sets negative. CSF culture negative. Respiratory panel negative. Temperature is 98.1, pulse 79, respirations 17, blood pressure 134/81, oxygen saturation 99% on room air. Maximum temperature (T max) yesterday was 100.2, today she is afebrile. IMPRESSION: Aseptic meningitis finally doing better after 4 days of IV fluids and conservative management. The patient was on IV Rocephin for possible Lyme. Rash is improving. The fact that her procalcitonin is negative and her ferritin is normal, and clinically she is better, I do not see any indication for antibiotic. Even though I recommended IV doxycycline earlier to Dr Greer she broke her fever before she even got a dose. Right ear pain. Suggest using decongestant. PLAN: If the patient remains afebrile, patient could be discharged home tomorrow. I doubt she needs doxycycline on discharge. I have ordered Anaplasma and Ehrlichia titer, as well as Babesia, which would still be pending before her discharge. She can follow up in my office next week. COOKIE
[2019-02-12 22:00] VITALS: BP 132/81
[2019-02-12] MEDS ORDERED: diphenhydrAMINE INJ 50MG/ML VIAL (J1200) IM STA (22:03)
[2019-02-12] MEDS ORDERED: KETOROLAC 30 MG/ML VIAL (J1885) IV ONE (22:15)
[2019-02-13] MEDS ORDERED: KETOROLAC TROMETHAMINE 10 MG TAB PO PRN (05:30)
[2019-02-13 06:00] VITALS: BP 113/69
[2019-02-13] MEDS: HEPARIN SOD (PORCINE) 5000 UNITS/ML VIAL SQ SCH ×2 (06:34→14:00)
[2019-02-13 07:29] LABS: ALT/SGPT 19 U/L (12-78); BILIRUBIN,TOTAL 0.5 MG/DL (0.2-1.0); BLOOD UREA NITROGEN 10 MG/DL (7-18); CALCIUM LEVEL 9.2 MG/DL (8.5-10.1); CARBON DIOXIDE LEVEL 30 MEQ/L (21-32); CHLORIDE LEVEL 103 MEQ/L (98-107); CREATININE FOR GFR 0.66 MG/DL (0.55-1.30); GLOMERULAR FILTRATION RATE > 60.0 (>58); GLUCOSE, FASTING 97 MG/DL (70-100); POTASSIUM SERUM 3.5 MEQ/L (3.5-5.1); SODIUM LEVEL 139 MEQ/L (136-145); TOTAL PROTEIN 6.6 GM/DL (6.4-8.2)
[2019-02-13] MEDS: CYANOCOBALAMIN 500 MCG TAB PO SCH (09:10)
[2019-02-13] MEDS: VITAMIN D 1,000 INTERNATIONAL UNITS TABLET PO SCH (09:10)
[2019-02-13] MEDS: DOXYCYCLINE HYCLATE 100 MG in D5W MINI-BAG PLUS 100 ML IV SCH (10:49)
[2019-02-13] MEDS ORDERED: DOXY-350 PO (11:34)
[2019-02-13] MEDS ORDERED: OXYC1TAB23 PO (11:35)
--- NOTE | 2019-02-13 11:41 | DS.PDOC ---
Discharge Summary General Date of Admission Feb 08, 2019 at 15:41 Date of Discharge Chief complaint Headaches Final diagnoses Viral meningitis Headaches History of present illness and Hospital course The patient was admitted for Possible viral meningitis. The patient's complaints are significant for meningitis with headache, photophobia and neck stiffness. Initially, which resolved over a period of time. With WBC at elevation with polymorphs and slight protein elevation in CSF. It most likely looks like viral meningitis. Though the viral PCR is negative. The patient does have some polymorphs. Patient was kept on Rocephin for 5 days and then ID decided to discontinue that. After that, the patient was started on doxycycline. All the cultures have been negative. HIV has been negative. Lines have been negative. Some of the PCL were also sent and for that. The patient will be followed up by Dr. Lowry. The infectious disease physician. Pain began 3 more days off doxycycline. As she was having severe neck pain and some paraspinal tenderness in the lumbar region. MRI of the head, cervical spine, lumbar spine and thoracic spine has been ordered. MRI of the head has been normal, but the patient does not want to have other MRIs. There is no paraspinal tenderness. She also had Maculopapular rash. Resolving Could be related to white etiology versus some drug rash. Ferritin levels were also done to rule out any adult onset still's disease. The patient is medically optimized to be given 5 days of Percocet 5 twice a day when necessary for pain. Has been advised to follow-up with PCP as well as infectious disease within a week. All the questions have been answered. In examination, diagnosed neck stiffness. No photo phobia. Pupils are reactive to light. There is no fecal or urinary incontinence. There is no spinal ten derness.. PHYSICAL EXAMINATION: VITAL SIGNS: Please see below GENERAL APPEARANCE: Resting him a slightly restless HEENT: Normocephalic, extraocular muscles are intact. Pupils normal reactive to light. No nuchal rigidity. CARDIOVASCULAR: S1,S2, pulse present LUNGS: Equal air entry b/l, no wheezes or crackle ABDOMEN: Soft, BS present, no tenderness, no guarding GENITOURINARY: No Billy EXTREMITIES: B/L no edema, capillary refill present SKIN: Papular rash on the upper trunk. NEUROLOGICAL: Cranial nerves grossly intact, strength equal bilateral upper and lower extremities. No fecal or urinary incontinence. PSYCHIATRIC: Normal mood and affect for current situation Medications. As per discharge reconciliation medication list Activity as tolerated Diet. 2 g sodium diet Follow-up appointments. PCP in 1 week, infectious disease in 1 week. Condition on discharge. Patient is medically optimized for discharge Discharge disposition: Home Total time spent on this discharge including coordination of care, review of chart documentation and extubation contact is around 35 minutes Discharge Summary PROCEDURES PERFORMED DURING STAY: [None]. ADMITTING DIAGNOSES: 1. . DISCHARGE DIAGNOSES: 1. . COMPLICATIONS/CHIEF COMPLAINT: Contusion Of Left Chest Wall,Viral Meningitis. HISTORY OF PRESENT ILLNESS: . HOSPITAL COURSE: . DISCHARGE MEDICATIONS: Please see below. ALLERGIES: Please see below. PHYSICAL EXAMINATION ON DISCHARGE: VITAL SIGNS: Please see below. GENERAL: HEENT: NECK: CARDIOVASCULAR EXAMINATION: RESPIRATORY EXAMINATION: ABDOMINAL EXAMINATION: EXTREMITIES: SKIN: NEUROLOGICAL EXAMINATION: PSYCHIATRIC EXAMINATION: LABORATORY DATA: Please see below. IMAGING: PROGNOSIS: ACTIVITY: [As tolerated]. DIET: DISCHARGE PLAN: DISPOSITION: . DISCHARGE INSTRUCTIONS: 1. . ITEMS TO FOLLOWUP ON ON OUTPATIENT: 1. . DISCHARGE CONDITION: [Stable]. TIME SPENT ON DISCHARGE: Greater than minutes. Vital Signs/I&Os Vital Signs Date Time Temp Pulse Resp B/P (MAP) Pulse Ox O2 Delivery O2 Flow Rate FiO2 02/13/19 06:00 98.1 69 17 113/69 (84) 99 Room Air I&O- Last 24 Hours up to 6 AM 02/13/19 06:00 Intake Total 1280 ml Output Total 1550 ml Balance -270 ml Laboratory Data Labs 24H Laboratory Tests 2 02/13/19 06:10: Anion Gap 6L, Glomerular Filtration Rate > 60.0, Calcium Level 9.2, Total Bilirubin 0.5#, Aspartate Amino Transf (AST/SGOT) 11, Alanine Aminotransferase (ALT/SGPT) 19, Alkaline Phosphatase 54, Total Protein 6.6, Albumin 3.0L, Albumin/Globulin Ratio 0.83L CBC/BMP Laboratory Tests 02/13/19 06:10 Microbiology Microbiology 02/08/19 Blood Culture - Preliminary, Resulted No Growth after 72 hours. All specime... 02/08/19 Blood Culture - Preliminary, Resulted No Growth after 72 hours. All specime... 02/08/19 - Final, Complete 02/08/19 Gram Stain - Final, Complete 02/08/19 CSF Culture - Final, Complete 02/08/19 Respiratory Virus Panel (PCR) (YANICK) - Final, Complete 02/08/19 Blood Culture - Final, Complete NO GROWTH AFTER 5 DAYS Discharge Medications Scheduled Bimatoprost (Lumigan) 0.01% 2.5ML Drops, 1 DROP OU QHS, (Reported) Brinzolamide/Brimonidine Tart (Simbrinza 1%-0.2% Eye Drops) 8 Ml Drops.susp, 1 DROP OU BID, (Reported) Cyanocobalamin (Vitamin B-12) (Vitamin B-12) 1,000 Mcg Capsule, 1,000 MCG PO DAILY, (Reported) Doxycycline Monohydrate (Doxycycline) 100 Mg Capsule, 100 MG PO BID Methylphenidate HCl (Methylphenidate ER) 36 Mg Tab.er.24, 36 MG PO DAILY, (Reported) Vitamin D (Vitamin D3) 1,000 Unit Tablet, 1,000 UNITS PO DAILY, (Reported) Zolpidem Tartrate (Zolpidem Tartrate) 10 Mg Tablet, 10 MG PO QHS, (Reported) Scheduled PRN Ibuprofen (Ibuprofen) 200 Mg Capsule, 600 MG PO QID PRN for PAIN, (Reported) Oxycodone HCl/Acetaminophen (Oxycodone-Acetaminophen 5-325) 1 Each Tablet, 1 TAB PO BIDP PRN for pain Allergies Coded Allergies: metoclopramide (Verified Adverse Reaction, Mild, dystonia , 02/08/19) prochlorperazine (Verified Adverse Reaction, Mild, dystonia , 02/08/19) REY DUBOIS MD Feb 13, 2019 11:41
[2019-02-13 14:00] VITALS: BP_SYST 105; BP_SYST 138; BP_DIAS 63; BP_DIAS 98
[2019-02-13] MEDS: MORPHINE 4 MG/ML 1ML VIAL/SYRINGE (J2270) IV PRN (15:35)
[2019-02-17 08:19] LABS: BABESIA MICROTI PCR Negative (Negative)
== END 2019-02-13 16:27 | disposition home or self-care (01) | DRG 76 ==
LOC: M ED 10:08 → M ED INP 15:41 → M PED 18:48 → M MSPAV 02-09 22:26
PROVIDERS: ADMIT Internal Medicine; ATTEND Internal Medicine
PROC: 009U3ZX Drainage of Spinal Canal, Percutaneous Approach, Diagnostic (ICD-10-PCS; principal; 2019-02-08)
DX: A87.9 Viral meningitis, unspecified (principal); R21 Rash and other nonspecific skin eruption; Z88.8 Allergy status to other drugs, medicaments and biological substances; Z79.899 Other long term (current) drug therapy

== ENCOUNTER → 2020-07-26 | Outpatient (CLI) | payer OTHER ==
[~2020-07-26] MED LIST changes: +B-12100010 PO; +BIMA01SOL OU; +CHOL100029 PO; +DOXY-350 PO; +IBUP-1022 PO; +IBUP200C28 PO; +METH36TA5 PO; +OXYC1TAB23 PO; +SIMB1SUS OU; +ZOLP10TA2 PO
--- NOTE | 2020-07-26 14:33 | REPMRS ---
Patient History The patient states she had a clinical breast exam in 06/2020 Family history of breast cancer at age 50 in paternal aunt, breast cancer at age 60 in maternal aunt. Took hormonal contraceptives for 6 years. 3D TOMOSYNTHESIS WAS PERFORMED. Mandy breast density b. Digital Woman Screen Mammo: July 26, 2020 - Exam #: [id number] Bilateral CC and MLO view(s) were taken. Technologist: Pinky De Jesus, Technologist Prior study comparison: March 18, 2017, digital woman screen mammo performed at [facility] [place]. FINDINGS: The breast tissue is heterogeneously dense. This may lower the sensitivity of mammography. There has been no change in the appearance of the mammogram from the prior studies. There is a moderate amount of residual fibroglandular tissue which is fairly symmetric. There is no interval development of dominant mass, areas of architectural distortion, or clustered microcalcification typical of malignancy. Assessment: BI-RADS/ACR category 1 mammogram. Negative Mammogram. Recommendation Routine screening mammogram in 1 year (for women over age 40). This mammogram was interpreted with the aid of an FDA-approved computer-aided dectection system. THE LIFETIME RISK OF BREAST CANCER IS 23.2%, THEREFORE SUPPLEMENTAL SCREENING MRI OF THE BREASTS IS RECOMMENDED IN 6 MONTHS. Electronically Signed By: Pravin Dubon MD 07/26/20 1032
== END ==
LOC: M WHC 13:21
PROVIDERS: ATTEND Obstetrics & Gynecology
DX: Z12.31 Encounter for screening mammogram for malignant neoplasm of breast (principal); Z92.0 Personal history of contraception

== ENCOUNTER → 2020-11-16 | Outpatient (CLI) | payer OTHER ==
[2020-11-16 12:19] LABS: HEMATOCRIT 39.9 % (36.0-47.0); HEMOGLOBIN 12.8 g/dl (12.0-15.5); MEAN CORPUSCULAR HEMOGLOBIN 31.9 pg (27.0-33.0); MEAN CORPUSCULAR HGB CONC 32.1 g/dl (32.0-36.5); MEAN CORPUSCULAR VOLUME 99.5 fl (80.0-96.0); PLATELET COUNT, AUTOMATED 274 10^3/uL (150-450); RED BLOOD COUNT 4.01 10^6/uL (4.00-5.40); WHITE BLOOD COUNT 5.8 10^3/uL (4.0-10.0)
[2020-11-16 12:41] LABS: HEMOGLOBIN A1c 4.8 %
[2020-11-16 12:52] LABS: ALBUMIN 3.9 GM/DL (3.2-5.2); ALT/SGPT 26 U/L (12-78); BILIRUBIN,TOTAL 0.6 MG/DL (0.2-1.0); BLOOD UREA NITROGEN 13 MG/DL (7-18); CALCIUM LEVEL 8.9 MG/DL (8.5-10.1); CARBON DIOXIDE LEVEL 26 MEQ/L (21-32); CHLORIDE LEVEL 108 MEQ/L (98-107); CHOLESTEROL LEVEL 232 MG/DL (<200); CHOLESTEROL RISK RATIO 2.442 (<5); CREATININE FOR GFR 0.69 MG/DL (0.55-1.30); GLOMERULAR FILTRATION RATE > 60.0 (>58); GLUCOSE, FASTING 90 MG/DL (70-100); HDL CHOLESTEROL 95 MG/DL (>40); IRON (FE) 122 UG/DL (50-170); LDL CHOLESTEROL 118 MG/DL (<100); NON-HDL-C 137 MG/DL; PERCENT SATURATION 40.8 % (13.2-45.0); POTASSIUM SERUM 4.4 MEQ/L (3.5-5.1); SODIUM LEVEL 139 MEQ/L (136-145); TOTAL IRON BINDING CAPACITY 299 UG/DL (250-450); TOTAL PROTEIN 7.1 GM/DL (6.4-8.2); TRIGLYCERIDES LEVEL 95 MG/DL (<150)
== END ==
LOC: M LAB 11:41
PROVIDERS: ATTEND Family Medicine
DX: D64.9 Anemia, unspecified (principal)

== ENCOUNTER → 2021-07-19 | Outpatient (CLI) | payer OTHER | LOC: M WHC 15:19 | PROVIDERS: ATTEND Obstetrics & Gynecology | DX: Z12.31 Encounter for screening mammogram for malignant neoplasm of breast (principal); Z53.20 Procedure and treatment not carried out because of patient's decision for unspecified reasons ==

== ENCOUNTER → 2022-01-28 | Outpatient (CLI) | payer OTHER ==
[2022-01-28 11:51] LABS: HEMATOCRIT 39.3 % (36.0-47.0); HEMOGLOBIN 12.8 g/dl (12.0-15.5); MEAN CORPUSCULAR HEMOGLOBIN 32.7 pg (27.0-33.0); MEAN CORPUSCULAR HGB CONC 32.6 g/dl (32.0-36.5); MEAN CORPUSCULAR VOLUME 100.3 fl (80.0-96.0); PLATELET COUNT, AUTOMATED 266 10^3/uL (150-450); RED BLOOD COUNT 3.92 10^6/uL (4.00-5.40); WHITE BLOOD COUNT 5.6 10^3/uL (4.0-10.0)
[2022-01-28 12:17] LABS: HEMOGLOBIN A1c 4.7 %
[2022-01-28 12:50] LABS: ALBUMIN 3.8 GM/DL (3.2-5.2); ALT/SGPT 24 U/L (12-78); BILIRUBIN,TOTAL 0.6 MG/DL (0.2-1.0); BLOOD UREA NITROGEN 13 MG/DL (7-18); CALCIUM LEVEL 9.2 MG/DL (8.5-10.1); CARBON DIOXIDE LEVEL 28 MEQ/L (21-32); CHLORIDE LEVEL 107 MEQ/L (98-107); CHOLESTEROL LEVEL 186 MG/DL (<200); CHOLESTEROL RISK RATIO 2.296 (<5); CREATININE FOR GFR 0.66 MG/DL (0.55-1.30); GLOMERULAR FILTRATION RATE > 60.0 (>58); GLUCOSE, FASTING 93 MG/DL (70-100); HDL CHOLESTEROL 81 MG/DL (>40); LDL CHOLESTEROL 86 MG/DL (<100); NON-HDL-C 105 MG/DL; POTASSIUM SERUM 4.2 MEQ/L (3.5-5.1); SODIUM LEVEL 139 MEQ/L (136-145); TRIGLYCERIDES LEVEL 97 MG/DL (<150)
[2022-01-28 13:14] LABS: TOTAL 25(OH) VITAMIN D 26.9 NG/ML (30.0-100.0)
== END ==
LOC: M LAB 11:12
PROVIDERS: ATTEND Family Medicine
DX: R53.83 Other fatigue (principal); D64.9 Anemia, unspecified

== ENCOUNTER → 2022-06-18 | Outpatient (CLI) | payer OTHER ==
[~2022-06-18] MED LIST changes: -DOXY-350 PO; +DOXY-444 PO
== END ==
LOC: M WHC 16:20
PROVIDERS: ATTEND Obstetrics & Gynecology
DX: Z12.31 Encounter for screening mammogram for malignant neoplasm of breast (principal)

== ENCOUNTER 2022-09-05 15:37 | Emergency (ER) | payer OTHER ==
[~2022-09-05] VITALS: Ht 162.6 cm; Wt 80.7 kg
[2022-09-05] MEDS ORDERED: RACEPINEPHrine 2.25% UD INHAL NEB ONE (15:55)
[2022-09-05] MEDS ORDERED: RACEPINEPHrine 2.25% UD INHAL As Ordered ONE (15:55)
[2022-09-05] MEDS: MAG SULF 1GM/100ML (MAG RUN) 1 GM in IV 1 EA IV SCH ×2 (16:12→16:29)
[2022-09-05 16:32] LABS: BASO # 0.1 10^3/uL (0.0-0.2); BASO % 0.7 % (0.0-1.0); EOS # 0.3 10^3/uL (0.0-0.5); EOS % 2.8 % (0.0-3.0); HEMATOCRIT 40.1 % (36.0-47.0); HEMOGLOBIN 13.7 g/dl (12.0-15.5); LYMPH # 3.5 10^3/uL (1.5-5.0); LYMPH % 39.7 % (24.0-44.0); MEAN CORPUSCULAR HEMOGLOBIN 32.5 pg (27.0-33.0); MEAN CORPUSCULAR HGB CONC 34.2 g/dl (32.0-36.5); MEAN CORPUSCULAR VOLUME 95.2 fl (80.0-96.0); MONO # 0.7 10^3/uL (0.0-0.8); MONO % 8.2 % (2.0-8.0); NEUTROPHILS # 4.3 10^3/uL (1.5-8.5); NEUTROPHILS % 48.4 % (36.0-66.0); PLATELET COUNT, AUTOMATED 367 10^3/uL (150-450); RED BLOOD COUNT 4.21 10^6/uL (4.00-5.40); WHITE BLOOD COUNT 8.9 10^3/uL (4.0-10.0)
[2022-09-05] MEDS ORDERED: LORazepam 2 MG/ML 1ML VIAL IV STA (16:44)
[2022-09-05 16:54] LABS: ALBUMIN 4.6 G/DL (3.2-5.2); ALKALINE PHOSPHATASE 75 U/L (46-116); ALT/SGPT 17 U/L (7.0-40); AST/SGOT 19 U/L (<34); BILIRUBIN,DIRECT 0.3 MG/DL (<0.4); BLOOD UREA NITROGEN 18 MG/DL (9-23); CALCIUM LEVEL 10.2 MG/DL (8.5-10.1); CARBON DIOXIDE LEVEL 21 MMOL/L (20-31); CHLORIDE LEVEL 105 MMOL/L (98-107); CREATININE FOR GFR 0.68 MG/DL (0.55-1.30); GLOMERULAR FILTRATION RATE > 60.0 (>58); GLUCOSE, FASTING 87 MG/DL (60-100); POTASSIUM SERUM 3.9 MMOL/L (3.5-5.1); SODIUM LEVEL 139 MMOL/L (136-145); TOTAL PROTEIN 7.9 G/DL (5.7-8.2)
[2022-09-05 16:56] LABS: THYROID STIMULATING HORMONE 3.733 uIU/ML (0.55-4.78); THYROXINE (T4) 10.1 UG/DL (4.5-10.9)
[2022-09-05 17:45] VITALS: BP 164/69
== END 2022-09-05 18:01 | disposition home or self-care (01) ==
LOC: M ED 15:37
DX: J45.909 Unspecified asthma, uncomplicated (principal); F90.9 Attention-deficit hyperactivity disorder, unspecified type; Z88.8 Allergy status to other drugs, medicaments and biological substances; Z79.899 Other long term (current) drug therapy
CPT/HCPCS: 70360; 80048; 80076; 84436; 84443; 85025; 87040; 87486; 87581; 87633; 87798; 93005; 93041; 94760; 96365; 96375; 99285; J2060; J3475

== ENCOUNTER → 2022-09-05 | Outpatient (CLI) | payer OTHER | LOC: M RAD 15:17 | PROVIDERS: ATTEND Family Medicine | DX: J40 Bronchitis, not specified as acute or chronic (principal) ==

== ENCOUNTER → 2022-12-17 | Outpatient (CLI) | payer OTHER ==
[2022-12-17 09:42] LABS: HEMATOCRIT 38.3 % (36.0-47.0); HEMOGLOBIN 12.5 g/dl (12.0-15.5); MEAN CORPUSCULAR HEMOGLOBIN 32.6 pg (27.0-33.0); MEAN CORPUSCULAR HGB CONC 32.6 g/dl (32.0-36.5); MEAN CORPUSCULAR VOLUME 99.7 fl (80.0-96.0); PLATELET COUNT, AUTOMATED 251 10^3/uL (150-450); RED BLOOD COUNT 3.84 10^6/uL (4.00-5.40)
[2022-12-17 10:14] LABS: ALBUMIN 3.7 G/DL (3.2-5.2); ALKALINE PHOSPHATASE 58 U/L (46-116); ALT/SGPT 11 U/L (7.0-40); AST/SGOT < 8 U/L (<34); BILIRUBIN,TOTAL 1.1 MG/DL (0.3-1.2); BLOOD UREA NITROGEN 11 MG/DL (9-23); CALCIUM LEVEL 8.9 MG/DL (8.5-10.1); CARBON DIOXIDE LEVEL 25 MMOL/L (20-31); CHLORIDE LEVEL 107 MMOL/L (98-107); CHOLESTEROL LEVEL 164 MG/DL (<200); CHOLESTEROL RISK RATIO 1.99 (<5); CREATININE FOR GFR 0.64 MG/DL (0.55-1.30); GLOMERULAR FILTRATION RATE > 60.0 (>58); GLUCOSE, FASTING 94 MG/DL (60-100); HDL CHOLESTEROL 82.1 MG/DL (>40); LDL CHOLESTEROL 63.9 MG/DL (<100); NON-HDL-C 81.9 MG/DL; POTASSIUM SERUM 4.4 MMOL/L (3.5-5.1); SODIUM LEVEL 138 MMOL/L (136-145); THYROID STIMULATING HORMONE 2.715 uIU/ML (0.55-4.78); TOTAL 25(OH) VITAMIN D 23.5 NG/ML (20.0-100.0); TOTAL PROTEIN 6.8 G/DL (5.7-8.2); TRIGLYCERIDES LEVEL 90 MG/DL (<150)
[2022-12-17 11:30] LABS: HEMOGLOBIN A1c 4.4 % (4.0-6.0)
== END ==
LOC: M LAB 09:04
PROVIDERS: ATTEND Family Medicine
DX: D64.9 Anemia, unspecified (principal); R53.83 Other fatigue; E03.9 Hypothyroidism, unspecified

== ENCOUNTER → 2023-05-13 | Outpatient (CLI) | payer OTHER ==
[2023-05-13 09:05] LABS: HEMATOCRIT 39.2 % (36.0-47.0); HEMOGLOBIN 12.7 g/dl (12.0-15.5); MEAN CORPUSCULAR HEMOGLOBIN 32.2 pg (27.0-33.0); MEAN CORPUSCULAR HGB CONC 32.4 g/dl (32.0-36.5); MEAN CORPUSCULAR VOLUME 99.5 fl (80.0-96.0); PLATELET COUNT, AUTOMATED 296 10^3/uL (150-450); RED BLOOD COUNT 3.94 10^6/uL (4.00-5.40); WHITE BLOOD COUNT 6.1 10^3/uL (4.0-10.0)
[2023-05-13 09:12] LABS: INR 1.03; PROTHROMBIN TIME 13.2 SECONDS (12.5-14.5)
[2023-05-13 09:36] LABS: THYROID STIMULATING HORMONE 3.262 uIU/ML (0.55-4.78); THYROXINE (T4) 7.1 UG/DL (4.5-10.9); TOTAL IRON BINDING CAPACITY 287 UG/DL (250-425)
[2023-05-13 09:37] LABS: ALBUMIN 3.5 G/DL (3.2-5.2); ALKALINE PHOSPHATASE 57 U/L (46-116); ALT/SGPT 18 U/L (7.0-40); AST/SGOT 18 U/L (<34); BILIRUBIN,TOTAL 0.5 MG/DL (0.3-1.2); BLOOD UREA NITROGEN 18 MG/DL (9-23); CALCIUM LEVEL 8.7 MG/DL (8.5-10.1); CARBON DIOXIDE LEVEL 28 MMOL/L (20-31); CHLORIDE LEVEL 110 MMOL/L (98-107); CHOLESTEROL LEVEL 167 MG/DL (<200); CHOLESTEROL RISK RATIO 2.29 (<5); GLOMERULAR FILTRATION RATE > 60.0 (>58); GLUCOSE, FASTING 82 MG/DL (60-100); HDL CHOLESTEROL 72.9 MG/DL (>40); IRON (FE) 72 UG/DL (50-170); LDL CHOLESTEROL 77.3 MG/DL (<100); MAGNESIUM LEVEL 2.2 MG/DL (1.8-2.4); NON-HDL-C 94.1 MG/DL; PERCENT SATURATION 25.1 % (13.2-45.0); POTASSIUM SERUM 4.8 MMOL/L (3.5-5.1); SODIUM LEVEL 143 MMOL/L (136-145); TOTAL PROTEIN 6.5 G/DL (5.7-8.2); TRIGLYCERIDES LEVEL 84 MG/DL (<150)
[2023-05-13 09:38] LABS: TOTAL 25(OH) VITAMIN D 63.7 NG/ML (20.0-100.0)
[2023-05-13 09:40] LABS: TOTAL T3 138.6 NG/DL (60.0-181.0)
[2023-05-13 09:55] LABS: HEMOGLOBIN A1c 4.8 % (4.0-6.0)
== END ==
LOC: M LAB 08:02
PROVIDERS: ATTEND Family Medicine
DX: E07.9 Disorder of thyroid, unspecified (principal)

== ENCOUNTER → 2023-08-29 | Outpatient (CLI) | payer OTHER ==
[~2023-08-29] MED LIST changes: +DOXY-440 PO; -DOXY-444 PO
== END ==
LOC: M WHC 15:30
PROVIDERS: ATTEND Obstetrics & Gynecology
DX: Z12.31 Encounter for screening mammogram for malignant neoplasm of breast (principal)

== ENCOUNTER → 2023-11-27 | Outpatient (CLI) | payer OTHER ==
[2023-11-27 12:18] LABS: HEMATOCRIT 39.7 % (36.0-47.0); MEAN CORPUSCULAR HEMOGLOBIN 32.8 pg (27.0-33.0); MEAN CORPUSCULAR HGB CONC 32.7 g/dl (32.0-36.5); MEAN CORPUSCULAR VOLUME 100.3 fl (80.0-96.0); PLATELET COUNT, AUTOMATED 263 10^3/uL (150-450); RED BLOOD COUNT 3.96 10^6/uL (4.00-5.40); WHITE BLOOD COUNT 5.5 10^3/uL (4.0-10.0)
[2023-11-27 12:39] LABS: HEMOGLOBIN A1c 4.6 % (4.0-6.0)
[2023-11-27 12:47] LABS: INR 1.03; PROTHROMBIN TIME 13.2 SECONDS (12.5-14.5)
[2023-11-27 12:52] LABS: ALBUMIN 3.9 G/DL (3.2-5.2); ALKALINE PHOSPHATASE 62 U/L (46-116); ALT/SGPT 19 U/L (7.0-40); AST/SGOT 14 U/L (<34); BILIRUBIN,TOTAL 1.1 MG/DL (0.3-1.2); BLOOD UREA NITROGEN 17 MG/DL (9-23); CALCIUM LEVEL 9.1 MG/DL (8.5-10.1); CARBON DIOXIDE LEVEL 25 MMOL/L (20-31); CHLORIDE LEVEL 108 MMOL/L (98-107); CHOLESTEROL LEVEL 212 MG/DL (<200); CREATININE FOR GFR 0.65 MG/DL (0.55-1.30); GLOMERULAR FILTRATION RATE > 60.0 (>58); GLUCOSE, FASTING 85 MG/DL (60-100); HDL CHOLESTEROL 75.5 MG/DL (>40); LDL CHOLESTEROL 120.9 MG/DL (<100); NON-HDL-C 136.5 MG/DL; POTASSIUM SERUM 4.7 MMOL/L (3.5-5.1); SODIUM LEVEL 138 MMOL/L (136-145); TOTAL PROTEIN 6.8 G/DL (5.7-8.2); TRIGLYCERIDES LEVEL 78 MG/DL (<150)
[2023-11-27 12:54] LABS: THYROID STIMULATING HORMONE 1.318 uIU/ML (0.55-4.78)
== END ==
LOC: M LAB 10:42
PROVIDERS: ATTEND Family Medicine
DX: D64.9 Anemia, unspecified (principal); R53.83 Other fatigue

== ENCOUNTER 2024-03-04 12:19 | Emergency (ER) | payer OTHER ==
[~2024-03-04] VITALS: Ht 162.6 cm; Wt 72.7 kg
[2024-03-04] MEDS: diphenhydrAMINE 50MG/ML VIAL IV ONE (13:35)
[2024-03-04] MEDS: KETOROLAC 30 MG/ML 1ML VIAL IV ONE (13:50)
[2024-03-04 13:51] LABS: BASO % 0.6 % (0.0-1.0); EOS # 0.1 10^3/uL (0.0-0.5); EOS % 1.6 % (0.0-3.0); HEMATOCRIT 38.5 % (36.0-47.0); HEMOGLOBIN 12.9 g/dl (12.0-15.5); LYMPH # 1.6 10^3/uL (1.5-5.0); LYMPH % 22.8 % (24.0-44.0); MEAN CORPUSCULAR HEMOGLOBIN 32.8 pg (27.0-33.0); MEAN CORPUSCULAR HGB CONC 33.5 g/dl (32.0-36.5); MONO # 0.6 10^3/uL (0.0-0.8); MONO % 8.5 % (2.0-8.0); NEUTROPHILS # 4.5 10^3/uL (1.5-8.5); NEUTROPHILS % 66.1 % (36.0-66.0); PLATELET COUNT, AUTOMATED 263 10^3/uL (150-450); RED BLOOD COUNT 3.93 10^6/uL (4.00-5.40); WHITE BLOOD COUNT 6.9 10^3/uL (4.0-10.0)
[2024-03-04 14:03] LABS: ERYTHROCYTE SEDIMENTATION RATE 2 mm/hr (0-20)
[2024-03-04 14:18] LABS: C REACTIVE PROTEIN QUANTITATIV < 0.40 MG/DL (<1.0)
[2024-03-04 14:20] LABS: BLOOD UREA NITROGEN 13 MG/DL (9-23); CALCIUM LEVEL 9.1 MG/DL (8.5-10.1); CARBON DIOXIDE LEVEL 22 MMOL/L (20-31); CHLORIDE LEVEL 111 MMOL/L (98-107); CREATININE FOR GFR 0.56 MG/DL (0.55-1.30); GLOMERULAR FILTRATION RATE > 60.0 (>58); GLUCOSE, FASTING 88 MG/DL (60-100); POTASSIUM SERUM 5.8 MMOL/L (3.5-5.1); SODIUM LEVEL 139 MMOL/L (136-145)
[2024-03-04] MEDS: OXYMETAZOLINE 0.05% NASAL SPRAY (AFRIN) ONE (14:52)
[2024-03-04] MEDS: dexAMETHasone 20MG/5ML VIAL IV ONE (14:52)
[2024-03-04] MEDS: ACETAMINOPHEN *IV* 1,000 MG in IV 1 EA IV ONE (14:53)
[2024-03-04] MEDS ORDERED: FLUC150T9 PO (15:59)
[2024-03-04] MEDS ORDERED: AMOX875T2 PO (15:59)
[2024-03-04 16:00] VITALS: BP 130/74; O2SAT 95
[2024-03-04 16:04] VITALS: TEMP 98.3
== END 2024-03-04 16:17 | disposition home or self-care (01) ==
LOC: EDBD 12:19 → M ED 12:19
DX: G43.909 Migraine, unspecified, not intractable, without status migrainosus (principal); H66.41 Suppurative otitis media, unspecified, right ear; F41.9 Anxiety disorder, unspecified; F90.9 Attention-deficit hyperactivity disorder, unspecified type; Z88.8 Allergy status to other drugs, medicaments and biological substances; Z79.2 Long term (current) use of antibiotics; Z79.1 Long term (current) use of non-steroidal anti-inflammatories (NSAID); Z79.899 Other long term (current) drug therapy
CPT/HCPCS: 70450; 80048; 85025; 85652; 86140; 96365; 96375; 99284; J0131; J1100; J1200; J1885

== ENCOUNTER → 2024-06-09 | Outpatient (CLI) | payer OTHER ==
[~2024-06-09] MED LIST changes: +AMOX875T2 PO; +FLUC150T9 PO
[2024-06-09 13:23] LABS: HEMOGLOBIN 13.4 g/dl (12.0-15.5); MEAN CORPUSCULAR HEMOGLOBIN 31.5 pg (27.0-33.0); MEAN CORPUSCULAR HGB CONC 31.9 g/dl (32.0-36.5); MEAN CORPUSCULAR VOLUME 98.8 fl (80.0-96.0); PLATELET COUNT, AUTOMATED 328 10^3/uL (150-450); RED BLOOD COUNT 4.25 10^6/uL (4.00-5.40)
[2024-06-09 13:48] LABS: HEMOGLOBIN A1c 4.6 % (4.0-6.0)
[2024-06-09 14:12] LABS: ALBUMIN 3.7 G/DL (3.2-5.2); ALKALINE PHOSPHATASE 66 U/L (35-104); ALT/SGPT 15 U/L (7.0-40); AST/SGOT 9 U/L (<34); BILIRUBIN,TOTAL 0.9 MG/DL (0.3-1.2); BLOOD UREA NITROGEN 12 MG/DL (9-23); CALCIUM LEVEL 9.5 MG/DL (8.5-10.1); CARBON DIOXIDE LEVEL 28 MMOL/L (20-31); CHLORIDE LEVEL 106 MMOL/L (98-107); CHOLESTEROL LEVEL 222 MG/DL (<200); CHOLESTEROL RISK RATIO 2.71 (<5); CREATININE FOR GFR 0.66 MG/DL (0.55-1.30); GLOMERULAR FILTRATION RATE > 60.0 (>58); GLUCOSE, FASTING 78 MG/DL (60-100); HDL CHOLESTEROL 81.7 MG/DL (>40); LDL CHOLESTEROL 118.9 MG/DL (<100); NON-HDL-C 140.3 MG/DL; POTASSIUM SERUM 4.4 MMOL/L (3.5-5.1); SODIUM LEVEL 142 MMOL/L (136-145); TOTAL PROTEIN 7.1 G/DL (5.7-8.2); TRIGLYCERIDES LEVEL 107 MG/DL (<150)
[2024-06-09 14:13] LABS: THYROID STIMULATING HORMONE 1.829 uIU/ML (0.55-4.78); TOTAL 25(OH) VITAMIN D 18.4 NG/ML (20.0-100.0)
== END ==
LOC: M LAB 11:22
PROVIDERS: ATTEND Family Medicine
DX: R53.83 Other fatigue (principal)

== ENCOUNTER → 2024-09-03 | Outpatient (CLI) | payer OTHER ==
[~2024-09-03] MED LIST changes: +METH36TA13 PO; -METH36TA5 PO
== END ==
LOC: M WHC 15:10
PROVIDERS: ATTEND Obstetrics & Gynecology
DX: Z12.31 Encounter for screening mammogram for malignant neoplasm of breast (principal)